=== PATIENT | female | born 1970 | race Hispanic/Latino ===

== ENCOUNTER 2018-06-21 08:48 | Observation (INO) | payer MEDICAID, OTHER ==
[~2018-06-21] VITALS: Ht 160 cm; Wt 98.9 kg
[2018-06-21] MEDS ORDERED: PHARMACY COMMUNICATION MISC SCH (09:45)
[2018-06-21] MEDS: CELESTONE SOLUSPAN 6 MG/ML 5ML VIAL IM SCH (10:50)
[2018-06-21 11:45] VITALS: BP 117/65
[2018-06-21 15:43] VITALS: BP 118/75
[2018-06-21 20:27] VITALS: BP 119/68
[2018-06-22 01:27] VITALS: BP 119/63
[2018-06-22 05:03] VITALS: BP 96/62
[2018-06-22 07:34] VITALS: BP 97/52
[2018-06-22] MEDS: CELESTONE SOLUSPAN 6 MG/ML 5ML VIAL IM SCH (11:32)
[2018-06-22 11:41] VITALS: BP 117/73
== END 2018-06-22 12:05 | disposition home or self-care (01) ==
LOC: LDH 08:48 → WSH 11:45
PROVIDERS: ADMIT Obstetrics & Gynecology; ATTEND Obstetrics & Gynecology
DX: O30.113 Triplet pregnancy with two or more monochorionic fetuses, third trimester (principal); O09.513 Supervision of elderly primigravida, third trimester; O99.343 Other mental disorders complicating pregnancy, third trimester; F31.9 Bipolar disorder, unspecified; Z3A.35 35 weeks gestation of pregnancy; Z79.899 Other long term (current) drug therapy
CPT/HCPCS: 76819 ×2; 96372 ×2; G0378 ×28; J0702 ×2

== ENCOUNTER 2018-06-26 13:00 | Inpatient (IN) | payer MEDICAID, OTHER ==
[~2018-06-26] VITALS: Ht 162.6 cm; Wt 98.9 kg
[2018-06-26 12:54] LABS: HEMATOCRIT 31.6 % (36-48); MEAN CORPUSCULAR HEMOGLOBIN 26.8 pg (27.0-33.0); MEAN CORPUSCULAR HGB CONC 32.9 g/dL (32.0-36.0); MEAN CORPUSCULAR VOLUME 81.4 fL (79-99); NUCLEATED RED BLOOD CELLS 0.1 % (0.0-0.19); PLATELET COUNT (AUTO) 215 K/uL (130-400); RED BLOOD CELL COUNT(AUTO) 3.89 MIL/uL (4.00-5.50); RED CELL DISTRIBUTION WIDTH 17.3 % (11.0-15.5); WHITE BLOOD COUNT (AUTO) 7.1 K/uL (4.8-10.8)
[2018-06-27] MEDS ORDERED: CLINDAMYCIN 900 MG/D5% WATER 50 ML IV ONE (05:39)
[2018-06-27] MEDS ORDERED: GENTAMICIN 80 MG/NS 100 ML PB 0 ML IV ONE (05:41)
[2018-06-27] MEDS ORDERED: CLINDAMYCIN 900 MG/D5% WATER 50 ML IVPB PRN (05:45)
[2018-06-27] MEDS ORDERED: GENTAMICIN SULFATE 240 MG in SODIUM CHLORIDE 0.9% 100 ML IV PRN (05:45)
[2018-06-27] MEDS ORDERED: LACTATED RINGERS 1000ML 1,000 ML IV SCH (05:45)
[2018-06-27] MEDS ORDERED: PORACTANT ALFA 240 MG/3 ML VIAL IH ONE (06:56)
[2018-06-27] MEDS ORDERED: PORACTANT ALFA 120 MG/1.5 ML VIAL IH ONE (06:56)
[2018-06-27] MEDS ORDERED: DURAMORPH PF1 MG/ML 10ML AMP IV ONE (07:58)
[2018-06-27] MEDS ORDERED: FENTANYL CITRATE PF 50 MCG/1 ML 2ML VIAL ONE (07:59)
[2018-06-27 08:22] LABS: HEPATITIS Bs ANTIGEN SCREEN P Negative (Negative)
[2018-06-27] MEDS ORDERED: EPHEDRINE SULFATE 50 MG/ML AMPULE ONE (08:27)
[2018-06-27] MEDS ORDERED: PHENYLEPHRINE HCL 10 MG/ML 1ML VIAL IV ONE (09:05)
[2018-06-27] MEDS ORDERED: OXYTOCIN 10 USP UNITS/ML ONE ×3 (09:06→11:23)
[2018-06-27] MEDS ORDERED: NALOXONE HCL 0.4 MG/1 ML ML IVP PRN ×3 (10:15→12:30)
[2018-06-27] MEDS ORDERED: PROMETHAZINE HCL 25 MG/ML 1ML AMPULE IM PRN ×2 (10:15→12:30)
[2018-06-27] MEDS ORDERED: ONDANSETRON HCL 4 MG/2 ML 8 MG in SODIUM CHLORIDE 0.9% 50 ML IVP NR ×2 (10:15→12:30)
[2018-06-27] MEDS ORDERED: DiphenhydrAMINE HCL 50 MG/ML VIAL IVP PRN ×2 (10:15→12:30)
[2018-06-27] MEDS ORDERED: ONDANSETRON HCL 4 MG/2 ML VIAL IVP PRN ×4 (10:15→12:30)
[2018-06-27] MEDS ORDERED: HYDROCODONE/ACETAMINOPHEN 5/325 MG TAB PO PRN ×3 (10:15→12:30)
[2018-06-27] MEDS ORDERED: MORPHINE SULFATE 2 MG/ML 1ML SYG IVP PRN ×2 (10:15→12:30)
[2018-06-27] MEDS ORDERED: METOCLOPRAMIDE 10 MG/2 ML VIAL IVP PRN ×2 (10:15→12:30)
[2018-06-27] MEDS ORDERED: EPHEDRINE SULFATE 50 MG/ML AMPULE IVP PRN ×2 (10:15→12:30)
[2018-06-27] MEDS ORDERED: LACTATED RINGERS 1000ML 1,000 ML IV ONE (10:18)
[2018-06-27 11:07] VITALS: BP 122/54
[2018-06-27] MEDS ORDERED: SODIUM CHLORIDE 0.9% 10 ML VIAL IVP PRN (12:30)
[2018-06-27 16:05] VITALS: BP 138/69
[2018-06-27] MEDS: DEXTROSE 5 %-0.45 % NACL 1,000 ML IV PRN (19:07)
[2018-06-27] MEDS: HYDROCODONE/ACETAMINOPHEN 5/325 MG TAB PO PRN (20:34)
[2018-06-27 20:41] VITALS: BP 125/71
[2018-06-28] VITALS (7 sets, daily range): BP systolic 110–134; BP diastolic 65–87
[2018-06-28] MEDS: DEXTROSE 5 %-0.45 % NACL 1,000 ML IV PRN (00:49)
[2018-06-28 05:24] LABS: HEMATOCRIT 27.9 % (36-48); MEAN CORPUSCULAR HEMOGLOBIN 26.7 pg (27.0-33.0); MEAN CORPUSCULAR HGB CONC 32.8 g/dL (32.0-36.0); MEAN CORPUSCULAR VOLUME 81.5 fL (79-99); PLATELET COUNT (AUTO) 164 K/uL (130-400); RED BLOOD CELL COUNT(AUTO) 3.42 MIL/uL (4.00-5.50); RED CELL DISTRIBUTION WIDTH 17.2 % (11.0-15.5); WHITE BLOOD COUNT (AUTO) 8.8 K/uL (4.8-10.8)
[2018-06-28] MEDS: HYDROCODONE/ACETAMINOPHEN 5/325 MG TAB PO PRN ×2 (05:30→22:04)
[2018-06-28] MEDS ORDERED: DIPHENHYDRAMINE HCL 25 MG CAPSULE PO PRN (07:45)
[2018-06-28] MEDS ORDERED: HYDROCODONE/ACETAMINOPHEN 5/325 MG TAB PO PRN (07:45)
[2018-06-28] MEDS ORDERED: BISACODYL 10 MG SUPP.RECT RC PRN (07:45)
[2018-06-28] MEDS ORDERED: ACETAMINOPHEN EXTRA STRENGTH 500 MG TABLET PO PRN (07:45)
[2018-06-28] MEDS: DOCUSATE SODIUM 100 MG CAP PO SCH ×2 (08:09→21:00)
[2018-06-28] MEDS: SIMETHICONE 80 MG TAB.CHEW PO PRN ×4 (08:09→21:00)
[2018-06-28] MEDS: IBUPROFEN 600 MG TABLET PO PRN ×2 (08:12→15:55)
[2018-06-28] MEDS: ACETAMINOPHEN-CODEINE 300/30MG TAB PO PRN ×2 (11:25→18:34)
[2018-06-29 03:52] VITALS: BP 114/71
[2018-06-29] MEDS: HYDROCODONE/ACETAMINOPHEN 5/325 MG TAB PO PRN (04:38)
[2018-06-29 07:14] VITALS: BP 120/87
[2018-06-29] MEDS: DIPH,PERTUSS(ACELL),TET VAC/PF 0.5 ML VIAL IM SCH ×2 (07:45→11:51)
[2018-06-29] MEDS: DOCUSATE SODIUM 100 MG CAP PO SCH (08:49)
[2018-06-29] MEDS: SIMETHICONE 80 MG TAB.CHEW PO PRN (08:49)
[2018-06-29] MEDS: IBUPROFEN 600 MG TABLET PO PRN (08:52)
[2018-06-29 11:35] VITALS: BP 121/78
== END 2018-06-29 12:00 | disposition home or self-care (01) | DRG 765 ==
LOC: EDSTATUS 13:00 → LDH 06-27 05:34 → WSH 06-27 11:05
PROVIDERS: ADMIT Obstetrics & Gynecology; ATTEND Obstetrics & Gynecology
PROC: 10D00Z1 Extraction of Products of Conception, Low, Open Approach (ICD-10-PCS; principal; 2018-06-27 07:30)
PROC: 3E0234Z Introduction of Serum, Toxoid and Vaccine into Muscle, Percutaneous Approach (ICD-10-PCS; 2018-06-29)
DX: O30.103 Triplet pregnancy, unspecified number of placenta and unspecified number of amniotic sacs, third trimester (principal); O60.14X0 Preterm labor third trimester with preterm delivery third trimester, not applicable or unspecified; O99.344 Other mental disorders complicating childbirth; F31.9 Bipolar disorder, unspecified; O09.513 Supervision of elderly primigravida, third trimester; Z3A.36 36 weeks gestation of pregnancy; Z37.51 Triplets, all liveborn; F43.22 Adjustment disorder with anxiety; O32.8XX0 Maternal care for other malpresentation of fetus, not applicable or unspecified; F39 Unspecified mood [affective] disorder; Z23 Encounter for immunization
CPT/HCPCS: 36415; 59510; 85027; 86592; 86850; 86900; 86901; 87340; 88307; 90715; A4344; A4450; A4606; J1580; J2274; J2370; J2405; J2590; J2765; J3010; J3490; J7120